=== PATIENT | female | born 1965 | race Caucasian/White ===

== ENCOUNTER 2025-02-16 07:51 | Emergency (ER) | payer OTHER, SELFPAY ==
[2025-02-16 07:52] VITALS: BP 155/97; PULSE 107; RESP 18; TEMP 37.1; O2SAT 99; BMI 30.6
--- NOTE | 2025-02-16 08:12 | ED.VIS.DENTA ---
HPI History of Present Illness Chief Complaint: Dental Informant: patient Narrative Narrative: 59-year-old female with right mandibular dental pain for the last 4 or 5 days, she had some mild swelling yesterday went to [facility] and was prescribed cephalexin, acetaminophen with codeine, and ibuprofen. She started taking the pills yesterday. She woke up today and the area is much more swollen. She states the pain is not as bad but she was taking pain medication, she last took them about 4 hours ago. She called the dentist but they referred her to the ER. She denies any fevers, chills, systemic symptoms. She is having a little bit of bleeding into her mouth. PFSH PFSH Medical History no medical history no medical history Home Medications ?Medication ?Instructions ?Recorded ?Last Taken ?Type cephalexin 500 mg capsule 500 mg PO Q6 #20 CAPSULES 02/16/25 Unknown Rx Allergy/AdvReac Type Severity Reaction Status Date / Time diphtheria, pertussis, Allergy UNKNOWN Verified 02/16/25 07:53 tetanus vacc Social History Smoking Status: Never smoker ROS ROS ED Constitutional Constitutional ED: Denies chills or fever(s) Eyes Eyes: Denies change in vision or double vision ENT ENT ED: Reports dental pain; Denies ear pain, sinus pain, sore throat or throat swelling Cardiovascular Cardiovascular: Denies chest pain or palpitations Respiratory/Chest Respiratory/Chest: Denies cough or dyspnea Integumentary Denies abscess or rash Neurologic Neurologic: Denies headache(s), paresthesias or weakness EXAM Physical Exam Const Vital Signs: 02/16/25 07:52 Temperature 98.7 F Temperature Source Temporal Pulse Rate 107 H Respiratory Rate 18 Blood Pressure 155/97 H Blood Pressure Mean 116 Pulse Ox 99 Oxygen Delivery Method Room Air Positive well nourished and well developed General Appearance ED: well developed and NAD HEENT HEENT Narrative: Mild trismus due to swelling right mandibular. There is significant amount of swelling and some mild overlying skin erythema without induration right submandibular and about the body of the mandible area. Intraorally, this is all soft tissue. Bony mandible nontender. The affected tooth which is right mandibular first molar is mildly tender and there is some blood around the gingival border at that tooth only. There is no gingival necrosis. The tooth is not loosened. There is no purulent discharge. She has trouble opening her mouth, but she is in no distress. Face and Sinus: sinuses nontender Throat: posterior oropharynx normal Eyes PERRL and EOMs intact bilaterally Neck no lymphadenopathy and supple Resp normal respiratory effort Neuro oriented x3 and CN's II-XII intact bilaterally Sensorium / Orientation: alert Gait (Neuro): normal gait Psych mental status grossly normal and thought process normal Skin no rashes or lesions noted and no wounds MDM MDM MDM Narrative Medical decision making narrative: Patient has significant swelling, so as I discussed with her I recommend needle aspiration, with the con being potential for pain and there may not be any purulence there. This would obviate the need for a CT. This was done, we attempted 3 different areas within the swollen area and there was no pus obtained. Therefore this is likely a phlegmon. She needs to be on antibiotics but she is only on cephalexin 3 times daily. I recommended for her. Therefore she has a 5-day course on prescribing her another 5 days. I think cephalexin is reasonable antibiotic as far as coverage is concerned. She has not failed that yet she is only been on it for a day. We discussed reasons to return she is comfortable with the plan. Procedures Other Procedures Procedure(s): Abscess simple needle aspiration, right mandibular dental abscess: After spraying with Cetacaine for 3 seconds, and obtaining informed consent, attempted to aspirate abscess intraoral approach, 3 different areas were attempted and there was no purulence able to be expressed or withdrawn. Patient had minor bleeding, she was able to rinse with ice water and spit. Tolerated well no complications. Discharge Plan Triage Chief Complaint: Dental ED Provider: Mart Leslie Dx/Rx/DC Orders Clinical Impression: Dental abscess Instructions: Dental Abscess Prescriptions: New cephalexin 500 mg capsule 500 mg PO Q6 Qty: 20 0RF Primary Care Provider: Care Physician,No Primary Referrals: Dentist,Your [STAFF PHYSICIAN] - As soon as possible Activity Restrictions/Additional Instructions: Take your antibiotic as follows: Cephalexin 500 mg 1 capsule 4 times daily. This should give you a 5-day supply approximately of what you have, fill the new prescription so that you have a total of 10 days. Print Language: Martiniquais Disposition Disposition: Home, Self Care
[2025-02-16] MEDS: Tetracaine/Benzocaine/Butamben 1 APPLIC TOPICAL (08:26)
[2025-02-16 09:32] VITALS: BP 141/78; PULSE 78; RESP 18; TEMP 36.6; O2SAT 99
== END 2025-02-16 09:33 | disposition home or self-care (01) ==
PROVIDERS: Emergency Provider Emergency Medicine; Visit Provider Emergency Medicine
DX: K04.7 Periapical abscess without sinus (principal)
CPT/HCPCS: 41800; 64400; 99282